=== PATIENT | female | born 1960 | race Caucasian/White ===

== ENCOUNTER 2019-12-07 06:55 | Day surgery (SDC) | payer OTHER ==
[2019-12-01 14:16] VITALS: BMI 25.4
[~2019-12-07 06:55] MED LIST: BUPIVACAINE HCL/PF 0.25% (2.5MG/ML) 10 ML VIAL IJ ONE
[2019-12-07] MEDS ORDERED: LIDOCAINE 1% P/F 10 MG/ML VIAL ONE (07:23)
[2019-12-07] MEDS ORDERED: BUPIVACAINE HCL/PF 2.5 MG/ML - 30 ML VIAL IJ ONE (07:24)
[2019-12-07] MEDS ORDERED: GUM MASTIC/STORAX/MSAL/ALCOHOL 1 DRP DROPSBTL MC ONE (07:32)
[2019-12-07] MEDS ORDERED: PROPOFOL 20 ML ONE ×2 (09:20)
[2019-12-07] MEDS ORDERED: MIDAZOLAM HCL 2 MG/2 ML SINGLE DOSE VIAL ONE (09:20)
[2019-12-07] MEDS ORDERED: EPHEDRINE SULFATE/0.9% NACL/PF 50 MG/10 ML SYRINGE NR ONE (09:21)
[2019-12-07] MEDS ORDERED: KETOROLAC TROMETHAMINE 30 MG/1 ML VIAL IVPUSH PRN (09:49)
[2019-12-07] MEDS ORDERED: ONDANSETRON 4 MG/2 ML VIAL IVPUSH PRN (09:49)
[2019-12-07] MEDS ORDERED: DEXTROSE 5%-0.45% SALINE 1,000 ML IV SCH (10:00)
[2019-12-07] MEDS ORDERED: BUPIVACAINE HCL/PF 0.25% (2.5MG/ML) 10 ML VIAL IJ ONE (11:09)
[2019-12-07] MEDS ORDERED: DEXAMETHASONE SOD PHOSPHATE 4 MG/1 ML VIAL ONE (11:10)
[2019-12-07] MEDS ORDERED: ceFAZolin SODIUM 1 GM VIAL ONE (11:10)
[2019-12-07] MEDS ORDERED: ONDANSETRON 4 MG/2 ML VIAL ONE ×2 (11:10→12:06)
[2019-12-07] MEDS ORDERED: LIDOCAINE HCL/PF 2% SDV 5ML VIAL ONE (11:12)
[2019-12-07 13:08] VITALS: TEMP 98.2
[2019-12-07 13:20] VITALS: BP 138/80; PULSE 68
[2019-12-07] MEDS ORDERED: oxyCODONE HCL 5 MG TABLET PO PRN ×2 (13:36)
[2019-12-07] MEDS ORDERED: LACTATED RINGERS SOLUTION 1,000 ML IV SCH (13:45)
== END 2019-12-07 13:46 | disposition home or self-care (01) ==
LOC: FASU 06:55
PROVIDERS: ATTEND Surgery Surgical Oncology
PROC: 0HBU0ZZ Excision of Left Breast, Open Approach (ICD-10-PCS; principal; 2019-12-07 10:37)
DX: D05.12 Intraductal carcinoma in situ of left breast (principal)
CPT/HCPCS: 19281; 19282; 76098-TC-FY; 88307-TC; 94760